=== PATIENT | male | born 1970 | race Caucasian/White ===

== ENCOUNTER 2017-01-20 06:41 | Emergency (ER) | payer BC ==
--- NOTE | 2017-02-07 15:51 | ER ---
ADMIT: 01/20/2017 RM/LOC: ER [facility] MR#: [id number] [address] [id number] [facility] [address] [place] [address] Emergency Room Report SEX: M AGE: 46 : 1970 DATE: 01/20/2017 This 46-year-old gentleman who was playing golf approximately 3 or 4 weeks ago when he swung the club and experienced sudden upper back pain. This has been nagging him since that time. He seen his chiropractor before only to have it worsen yesterday. Subsequently comes to the Emergency Department. It is relieved by heat, but tends to worsen soon after, describes as a muscle spasm. See T-sheet for history and physical. The patient diagnosed with back pain and strain. He is encouraged to follow up with his primary doctor this week and inquire about an MRI of his spine. He is given prescription for Mcgregor, Flexeril, and physical therapist evaluation and treat. Holden Duran MD/ dolores JOB #: [id number] CC: Rosalio Garzon MD, Attending Physician Cain Mcintyre DO, Family Physician
== END 2017-01-20 08:10 | disposition home or self-care (01) ==
LOC: ER 06:41
DX: S29.012A Strain of muscle and tendon of back wall of thorax, initial encounter (principal); Z88.0 Allergy status to penicillin; X50.9XXA Other and unspecified overexertion or strenuous movements or postures, initial encounter